=== PATIENT | male | born 1985 | race Caucasian/White ===

== ENCOUNTER → 2017-08-14 15:27 | Outpatient (REF) | payer BC, SELFPAY | LOC: LAB 15:27 | PROVIDERS: Visit Provider Family Medicine | DX: R31.21 Asymptomatic microscopic hematuria (principal) | CPT/HCPCS: 87086 ==

== ENCOUNTER 2017-10-30 15:51 | Emergency (ER) | payer BC, SELFPAY ==
[2017-10-30 15:52] VITALS: BP 142/85; PULSE 101; RESP 18; TEMP 36.8; O2SAT 98; BMI 26.6
--- NOTE | 2017-10-30 15:56 | XR_ITS ---
XR chest 2V Ordering Physician: Ginette Hernandez MD Patient Age: 32 years: Male HISTORY: ITS.REASON: pain in chest TECHNIQUE: 2 view chest COMPARISON : No previous for comparison FINDINGS . The lungs are well expanded. No focal pneumonia. No pneumothorax. No pleural effusion. Chest wall unremarkable. Upper normal markings central markings. Nonspecific reflect a history of smoking could reflect bronchitis or merely a baseline normal for this patient. Central vascularity appears normal to upper normal as well.. The heart is normal in size the rosales and mediastinal structures satisfactory. Chest wall T-spine unremarkable. Spleen appears normal in size. Small Gastric bubble beneath left hemidiaphragm. Patient may have recently eaten as the stomach appears relatively full otherwise IMPRESSION: Nothing definitely acute. No focal pneumonia. No pneumothorax. Central markings upper normal prominence; and likely baseline for this patient
--- NOTE | 2017-10-30 16:03 | HMH.EDCP ---
ED Disposition Clinical Impression: History of asthma, Seasonal allergies, Ulcerative colitis, Reactive airway disease Disposition: Home, Self-Care Condition on Discharge: Fair Additional Instructions: 1- albuterol mdi. 2- daily asa 81 mg 3- outpatient follow up with Dr Sr at 900 AM tomorrow 10/31/17 for a possible stress. 4- diet rich potassium and gotrade. Prescriptions: Albuterol Sulfate [Albuterol HFA Inhaler] 1 puff IH Q4HP PRN #1 inh PRN Reason: Shortness Of Breath Or Wheezing Referrals: Oliver Evans MD [Primary Care Provider] - Dex Sr MD [Staff Physician] - - Critical Care Critical Care Time: No Attestation: On , the high probability of a clinically significant, sudden or life threatening deterioration of the following system(s) required my full and direct attention, intervention and personal management. The time I documented below is in addition to time spent performing reported procedures but includes the following listed in this critical care notation. Medical Decision Making - Luis Inquiry Pt receiving controlled substance: No Luis was queried for this patient: No Vital Signs: 10/30/17 15:52 10/30/17 16:41 Temperature 98.3 F Temperature Source Oral Pulse Rate 81 Pulse Rate [Right Brachial] 101 H Respiratory Rate 18 Blood Pressure [Right Arm] 142/85 Blood Pressure Mean [Right Arm] 104 Blood Pressure Source [Right Arm] Automatic Cuff Blood Pressure Position [Right Arm] Sitting 02 Sat by Pulse Oximetry 98 Oxygen Delivery Method Room Air - Lab Data Lab Results 10/30/17 16:00: WBC 8.0, RBC 5.25, Hgb 16.5, Hct 45.9, MCV 87.4, MCH 31.5 H, MCHC 36.0 H, RDW 13.0, Plt Count 294, MPV 8.0, Neut % (Auto) 53.2, Lymph % (Auto) 34.8, [place] % (Auto) 9.0, Eos % (Auto) 2.0, Baso % (Auto) 0.9, Neut # (Auto) 4.2, Lymph # (Auto) 2.8, [place] # (Auto) 0.7, Eos # (Auto) 0.2, Baso # (Auto) 0.1 10/30/17 16:00: Sodium 142, Potassium 3.3 L, Chloride 103, Carbon Dioxide 28, Anion Gap 14.3, BUN 23 H, Creatinine 1.29, Estimated Creat Clear 89, Estimated GFR 64, Est GFR ( Amer) 78, Glucose 114 H, Calcium 8.5, Troponin I < 0.02, Amylase 46 10/30/17 16:00: D-Dimer < 100 10/30/17 16:00: Lipase 164 10/30/17 16:00: Total Bilirubin 0.4, Direct Bilirubin 0.1, Indirect Bilirubin 0.3, AST 36, ALT 62, Alkaline Phosphatase 60, Total Protein 7.2, Albumin 4.0 10/30/17 16:00: B-Natriuretic Peptide 21 10/30/17 16:10: Troponin I < 0.02 Result diagrams: 10/30/17 16:00 10/30/17 16:00 Orders (Tests/Meds): ED MEDICATIONS Discontinued Medications Generic Name Dose Route Start Last Admin Trade Name Freq PRN Reason Stop Dose Admin Albuterol Sulfate 2.5 mg 10/30/17 16:02 10/30/17 16:07 Albuterol 0.083% 2.5mg/3ml Neb IH 10/30/17 16:03 2.5 mg ONCE ONE Administration Famotidine 20 mg 10/30/17 16:02 10/30/17 16:07 Pepcid 20mg/2ml Vial IV 10/30/17 16:03 20 mg ONCE ONE Administration Methylprednisolone Sodium Succinate 125 mg 10/30/17 16:02 10/30/17 16:07 Solu-Medrol 125mg/2ml Vial IV 10/30/17 16:03 125 mg ONCE ONE Administration ORDERS Category Date Time Status ABG [Arterial Blood Gas] Stat RT 10/30/17 16:00 Ordered - Radiology Data #1 Image(s): Chest Image Reviewed: Yes I reviewed the patient's radiology image, Yes I discussed the image results w/the radiologist Preliminary Findings: Normal/NAD - ECG Data Tracing #1 Normal sinus rhythm without baseline artifact normal P-wave QRS and T waves no acute. ECG initial impression date: 10/30/17 ECG initial impression time: 15:50 Normal Sinus Rhythm: No Medical Decision Narrative: The patient refused arterial blood gases aware of risks and benefits will sign a refusal. He received IV steroids albuterol neb treatment with improvement of his symptoms. He was ruled out for myocardial
--- NOTE | 2017-10-30 16:05 | PC.NURSE ---
pt refused blood gas
--- NOTE | 2017-10-30 16:06 | ED_ITS ---
ED Disposition Clinical Impression: History of asthma, Seasonal allergies, Ulcerative colitis, Reactive airway disease Disposition: Home, Self-Care Condition on Discharge: Fair Additional Instructions: 1- albuterol mdi. 2- daily asa 81 mg 3- outpatient follow up with Dr Sr at 900 AM tomorrow 10/31/17 for a possible stress. 4- diet rich potassium and gotrade. Prescriptions: Albuterol Sulfate [Albuterol HFA Inhaler] 1 puff IH Q4HP PRN #1 inh PRN Reason: Shortness Of Breath Or Wheezing Referrals: Oliver Evans MD [Primary Care Provider] - Dex Sr MD [Staff Physician] - - Critical Care Critical Care Time: No Attestation: On , the high probability of a clinically significant, sudden or life threatening deterioration of the following system(s) required my full and direct attention, intervention and personal management. The time I documented below is in addition to time spent performing reported procedures but includes the following listed in this critical care notation. Medical Decision Making - Luis Inquiry Pt receiving controlled substance: No Luis was queried for this patient: No Vital Signs: 10/30/17 15:52 10/30/17 16:41 Temperature 98.3 F Temperature Source Oral Pulse Rate 81 Pulse Rate [Right Brachial] 101 H Respiratory Rate 18 Blood Pressure [Right Arm] 142/85 Blood Pressure Mean [Right Arm] 104 Blood Pressure Source [Right Arm] Automatic Cuff Blood Pressure Position [Right Arm] Sitting 02 Sat by Pulse Oximetry 98 Oxygen Delivery Method Room Air - Lab Data Lab Results 10/30/17 16:00: WBC 8.0, RBC 5.25, Hgb 16.5, Hct 45.9, MCV 87.4, MCH 31.5 H, MCHC 36.0 H, RDW 13.0, Plt Count 294, MPV 8.0, Neut % (Auto) 53.2, Lymph % (Auto ) 34.8, [place] % (Auto) 9.0, Eos % (Auto) 2.0, Baso % (Auto) 0.9, Neut # (Auto) 4.2, Lymph # (Auto) 2.8, [place] # (Auto) 0.7, Eos # (Auto) 0.2, Baso # (Auto) 0.1 10/30/17 16:00: Sodium 142, Potassium 3.3 L, Chloride 103, Carbon Dioxide 28, Anion Gap 14.3, BUN 23 H, Creatinine 1.29, Estimated Creat Clear 89, Estimated GFR 64, Est GFR ( Amer) 78, Glucose 114 H, Calcium 8.5, Troponin I < 0.02 , Amylase 46 10/30/17 16:00: D-Dimer < 100 10/30/17 16:00: Lipase 164 10/30/17 16:00: Total Bilirubin 0.4, Direct Bilirubin 0.1, Indirect Bilirubin 0.3, AST 36, ALT 62, Alkaline Phosphatase 60, Total Protein 7.2, Albumin 4.0 10/30/17 16:00: B-Natriuretic Peptide 21 10/30/17 16:10: Troponin I < 0.02 Result diagrams: 10/30/17 16:00 10/30/17 16:00 Orders (Tests/Meds): ED MEDICATIONS Discontinued Medications Generic Name Dose Route Start Last Admin Trade Name Freq PRN Reason Stop Dose Admin Albuterol Sulfate 2.5 mg 10/30/17 16:02 10/30/17 16:07 Albuterol 0.083% 2.5mg/3ml Neb 10/30/17 16:03 2.5 mg ONCE ONE Administration Famotidine 20 mg 10/30/17 16:02 10/30/17 16:07 Pepcid 20mg/2ml Vial IV 10/30/17 16:03 20 mg ONCE ONE Administration Methylprednisolone Sodium Succinate 125 mg 10/30/17 16:02 10/30/17 16:07 Solu-Medrol 125mg/2ml Vial IV 10/30/17 16:03 125 mg ONCE ONE Administration ORDERS
[2017-10-30 16:31] LABS: D-Dimer < 100 ng/mL (0-400)
[2017-10-30 16:41] VITALS: PULSE 81; PULSE 84
[2017-10-30 16:44] LABS: Basophils # 0.1 K/mm3 (0-0.2); Basophils % 0.9 % (0.1-2.0); Eosinophils # 0.2 K/mm3 (0.0-0.4); Hematocrit 45.9 % (42.0-52.0); Hemoglobin 16.5 g/dL (14.1-18.0); Lymphocytes # 2.8 K/mm3 (0.7-4.5); Lymphocytes % 34.8 K/mm3 (10-50); Mean Corpuscular Hemoglobin 31.5 pg (27.0-31.2); Mean Corpuscular Volume 87.4 fl (80-94); Monocytes # 0.7 K/mm3 (0.1-1.0); Neutrophils # 4.2 K/mm3 (1.8-7.8); Neutrophils % 53.2 % (37.0-80.0); Platelet Count 294 K/mm3 (142-424); Red Blood Count 5.25 M/mm3 (4.60-6.20)
[2017-10-30 17:02] LABS: Aspartate Amino Transferase 36 U/L (15-37); Bilirubin,Direct 0.1 mg/dL (0.0-0.2); Bilirubin,Indirect 0.3 mg/dL (0.0-0.9); Bilirubin,Total 0.4 mg/dL (0.2-1.0)
[2017-10-30 17:03] LABS: Alanine Aminotransferase 62 U/L (12-78); Alkaline Phosphatase 60 U/L (46-116); Total Protein,Serum 7.2 gm/dL (6.4-8.2)
[2017-10-30 17:04] LABS: Anion Gap 14.3 mEq/L (5-15); Blood Urea Nitrogen 23 mg/dL (7-18); Carbon Dioxide 28 mmol/L (21.0-32.0); Chloride 103 mmol/L (98-107); Creatinine Clearance Estimated 89 mL/min (0-300); Creatinine,Serum 1.29 mg/dL (0.70-1.30); Estimated Glomerular Filt Rate 64 ml/min (>60); GFR (African American) 78 ML/MIN (>60); Lipase 164 u/L (73-393); Potassium 3.3 mmoL/L (3.5-5.1); Sodium 142 mmol/L (136-145); Troponin I < 0.02 ng/ml (0.00-0.06)
[2017-10-30 17:05] LABS: Amylase 46 U/L (25-125); Calcium 8.5 mg/dL (8.5-10.1); Glucose 114 mg/dL (74-106)
[2017-10-30 18:33] LABS: Troponin I < 0.02 ng/ml (0.00-0.06)
[2017-10-30 18:54] VITALS: BP 138/79; PULSE 75; RESP 18; TEMP 37; O2SAT 98
== END 2017-10-30 18:54 | disposition home or self-care (01) ==
PROVIDERS: Emergency Provider Emergency Medicine; PCP Family Medicine
DX: R07.89 Other chest pain (principal); J30.2 Other seasonal allergic rhinitis; K51.90 Ulcerative colitis, unspecified, without complications; J45.909 Unspecified asthma, uncomplicated
CPT/HCPCS: 36415; 71046; 80048; 80076; 82150; 83690; 83880; 84484; 85025; 85378; 93005; 96374; 96375; 99283

== ENCOUNTER → 2020-05-19 13:14 | Outpatient (CLI) | payer BC, SELFPAY ==
[2020-05-20 09:12] LABS: Covid-19 Nasal PCR Sendout P&C NEGATIVE
== END ==
PROVIDERS: PCP Family Medicine; Visit Provider Family Medicine
DX: Z11.52 Encounter for screening for COVID-19 (principal)
CPT/HCPCS: U0004

== ENCOUNTER → 2020-09-10 11:49 | Outpatient (CLI) | payer BC, SELFPAY ==
[2020-09-10 11:53] LABS: Microscopic, Urine URINE MICROSCOPIC (MICROSCOPIC)
[2020-09-10 12:50] LABS: Appearance,Urine CLEAR (Clear); Bilirubin,Urine Negative (Negative); Blood, Urine TRACE-I (Negative); Color,Urine YELLOW (Yellow); Glucose,Urine (UA) Negative (Negative); Ketones,Urine Negative (Negative); Leukocyte Esterase,Urine Negative (Negative); Nitrate,Urine Negative (Negative); Protein,Urine Negative (Negative); Specific Gravity, Urine <= 1.005 (1.005-1.030); Urobilinogen,Urine 0.2 EU/dl (0.2)
[2020-09-10 12:54] LABS: Creatinine,Urine Random 17 mg/dL (Not Estab.)
[2020-09-10 13:01] LABS: RBC,Urine Occasional #/hpf (0-3)
[2020-09-10 13:02] LABS: Albumin Level 5.2 g/dl (3.5-5.0); Anion Gap 11.3 mEq/L (5-15); Blood Urea Nitrogen 19 mg/dl (9-20); Carbon Dioxide 32 mmol/L (22.0-30.0); Chloride 99 mmol/L (98-107); Estimated Glomerular Filt Rate 95 ml/min (>60); GFR (African American) 116 ML/MIN (>60); Glucose 116 mg/dl (74-100); Phosphorous 4.1 mg/dl (2.5-4.5); Potassium 4.3 mmoL/L (3.5-5.1); Sodium 138 mmol/L (136-145)
[2020-09-10 13:07] LABS: C-Reactive Protein 0.7 mg/L (0-4)
== END ==
PROVIDERS: Visit Provider Internal Medicine Nephrology
DX: R31.9 Hematuria, unspecified (principal); R80.9 Proteinuria, unspecified; K51.90 Ulcerative colitis, unspecified, without complications
CPT/HCPCS: 36415; 80069; 81001; 82570; 84155; 86140

== ENCOUNTER → 2020-12-14 10:50 | Outpatient (CLI) | payer BC, SELFPAY | PROVIDERS: PCP Family Medicine; Visit Provider Physician Assistant | DX: Z20.822 Contact with and (suspected) exposure to COVID-19 (principal) | CPT/HCPCS: U0003 ==

== ENCOUNTER 2025-01-25 18:17 | Emergency (ER) | payer BC, OTHER, SELFPAY ==
--- NOTE | 2025-01-25 18:19 | XR_ITS ---
PROCEDURE INFORMATION: Exam: XR Chest Exam date and time: 01/25/2025 6:29 PM Age: 39 years old Clinical indication: Shortness of breath TECHNIQUE: Imaging protocol: Radiologic exam of the chest. Views: 1 view. COMPARISON: No relevant prior studies available. FINDINGS: Limitations: Suboptimal positioning. Tubes, catheters and devices: Leads overlying chest. Lungs: No definite consolidation. Pleural spaces: No significant pleural effusion. No pneumothorax. Heart/Mediastinum: No cardiomegaly. Bones/joints: No displaced fracture. Soft tissues: Unremarkable. IMPRESSION: No definite acute cardiopulmonary disease.
--- NOTE | 2025-01-25 18:19 | ECG_ITS ---
APPROVED REPORT Exam: Resting ECG HR:77 bpm ECG Measurements Heart Rate 77 AXES NJ 146 P 46 QRSd 94 QRS 63 QT 394 T 47 QTc 425 Conclusion SINUS RHYTHM NORMAL ECG UNCONFIRMED REPORT Normal sinus rhythm. No ST elevation or depression. QTc normal at 425 Electronically signed by : JUANITA SMITH, 01/25/2025 22:26:23
--- NOTE | 2025-01-25 18:20 | ED_ITS ---
<Statement entered by Taj Gardner MD - 01/25/25 20:22> I was consulted by the NOHEMI, and we discussed the complexity of the problems being addressed. I approve the treatment and management plan for this patient's care in the emergency department, thus performing a substantive portion of the medical decision making. Taj Gardner MD Discharge Plan Prescriptions Prescriptions: No Action albuterol sulfate 18 GM HFA aerosol inhaler 1 puff IH Q4HP PRN (Reason: Shortness Of Breath Or Wheezing) Qty: 1 0RF Clinical Impressions Clinical Impression: Atypical chest pain Print Language Print Language: Yakut Discharge ED Provider: Taj Gardner HPI General Chief Complaint: Chest Pain Stated Complaint: Chest Pain Time Seen by Provider: 01/25/25 18:18 History of Present Illness HPI narrative: Oliver Viramontes is a 39-year-old male without significant past medical history who presents emergency room today with complaints of chest discomfort and shortness of breath. Patient reports he has had symptoms like this in the past. Symptoms all initially started on , patient reports he became acutely more pronounced and noticeable today. Reports that he was driving to [place] earlier today and began having some shortness of breath, states he felt off . Reports some chest discomfort on the left side of his chest, described as some light pressure. Nonradiating. No ripping or tearing sensation noted. Denies any nausea, vomiting, diarrhea. No diaphoresis noted. Reports he had some tingling in all 4 extremities that started as well. Has had this sensation intermittently today as well. No family history of sudden cardiac , did have a grandfather with a reported heart attack. Tells me that he was diagnosed with a panic attack/anxiety during his last ER visit for the same symptoms. Does not take any medications daily. Denies any tobacco use, alcohol use, illicit drug use. Related Data Previous Rx's ?Medication ?Instructions ?Recorded albuterol sulfate 90 mcg/actuation 1 puff IH Q4HP PRN Shortness Of 10/30/17 aerosol inhaler Breath Or Wheezing #1 inh Allergies Allergy/AdvReac Type Severity Reaction Status Date / Time No Known Allergies Allergy Verified 08/31/17 12:06 [facility] Disclaimer: The information contained in this section may have been updated after the patient was seen, as this information can be updated by other users. Social History Smoking Status: Never smoker alcohol intake: current alcohol intake frequency: holidays/special occasions only current occupational status: employed Travel in the last 8 weeks?: None Other Medical History Have you received the Flu Vaccine for this season: Yes Have you received the Pneumonia Vaccine: No ROS Obtained: Yes All systems reviewed & no additional complaints except as documented Physical Exam General General appearance: alert and in no apparent distress Head Head exam: atraumatic and normocephalic Eye Eye exam: Present PERRL and EOMI Neck Neck exam: Present trachea midline Chest Chest inspection: Present symmetric chest wall rise Respiratory Respiratory exam: Present normal lung sounds bilaterally Cardiovascular Cardiovascular exam: Present regular rate and normal rhythm Abdominal Exam Abdominal exam: Present soft and normal bowel sounds; Absent tenderness Extremities Exam Extremities exam: Present normal inspection and full ROM Neurological Exam Neurological exam: Present alert and oriented X3 Skin Skin exam: Present warm, dry and intact HEART Score HEART Score HEART Score assessment performed?: Yes HEART Score: 1 Critical Care Critical Care Time Critical Care Time: No Medical Decision Making Luis Inquiry Pt receiving controlled substance: No Vital Signs Vital Signs: 01/25/25 18:21 01/25/25 18:27 Temperature 98.3 F Temperature Source Oral Pulse Rate 60 Pulse Rate [Left Radial] 74 Respiratory Rate 20 Blood Pressure [Right Arm] 136/97 H Blood Pressure Mean [Right Arm] 110 02 Sat by Pulse Oximetry 98 Oxygen Delivery Method Room Air Lab Data Labs: Lab Results 01/25/25 18:17: WBC 6.8, RBC 5.10, Hgb 16.3, Hct 44.2, MCV 86.7, MCH 32.0 H, M CHC 36.9 H, RDW 11.8, Plt Count 262, MPV 10.3, Neut % (Auto) 61.6, Lymph % (Auto) 26.1, [place] % (Auto) 9.8 H, Eos % (Auto) 1.2, Baso % (Auto) 1.0, Neut # (Auto) 4.2, Lymph # (Auto) 1.8, [place] # (Auto) 0.7, Eos # (Auto) 0.1, Baso # (Auto) 0.1, Sodium 141, Potassium 3.7, Chloride 101, Carbon Dioxide 28, Anion Gap 15.7 H, BUN 21 H, Creatinine 1.20, Estimated Creat Clear 82, Estimated GFR 67, Est GFR ( Amer) 81, Glucose 90, Calcium 9.3, Total Bilirubin 0.8, AST 36, ALT 27, Alkaline Phosphatase 51, Troponin I < 0.01, Total Protein 8.1, Albumin 5.0, Globulin 3.1, Albumin/Globulin Ratio 1.6 01/25/25 18:17 01/25/25 18:17 Response Orders (Tests/Meds): ORDERS Category Date Time Status CXR --portable [XR chest portable] Stat Exams 01/25/25 18:19 Taken CBC w/Auto Diff [Complete Blood Count Auto Diff] Stat Lab 01/25/25 18:17 Completed CMP [Comprehensive Metabolic Panel] Stat Lab 01/25/25 18:17 Completed Trop I [Troponin I] Stat Lab 01/25/25 18:17 Completed Troponin I Q3H Lab 01/25/25 21:30 Ordered Troponin I Q3H Lab 01/26/25 00:30 Ordered ECG Request Stat Y 01/25/25 18:19 Ordered MDM Narrative Medical Decision Narrative: In summary patient is an 39-year-old male who presents emergency department for evaluation of chest discomfort and shortness of breath. Symptoms all started on , but seem to acutely worsen today. Denies any diaphoresis, nausea, vomiting. Does report some intermittent tingling of his arms and legs. Has been evaluated for the symptoms in the ER in the past, was diagnosed with anxiety/panic attacks. He is unsure if he has had a stress test or an echo in the past. Denying any tearing or ripping sensation in his chest, no chest pain at this time per se. Patient does describe that he feels off and states that it feels like it is affecting more on the left side of his chest. Patient is hemodynamically stable, normotensive blood pressures, heart rate regular, NSR on the bus monitor upon arrival, afebrile. Unremarkable nonfocal physical exam, patient appears healthy, stated age, in no acute distress.. Differential diagnosis includes chest pain, pulmonary embolism, pneumonia, pneumothorax. Initial workup will be conducted with hematologic labs, chest x-ray, EKG. patient does have a PERC score of 0. Heart score is 1. Did consider ordering a CTA of the chest but patient has a PERC score of 0. Initial interventions include reassurance, patient declining any pain medicine at this time. No chest pain reported per se, just states he feels off . Initial workup reviewed by me showed a negative troponin, no leukocytosis, normal electrolytes. EKG without ST elevation. Informal read of the Chest x-ray showed no acute cardiopulmonary process. Upon repeat evaluation patient states he feels better and was ready to be discharged home. Given this patient is medically stable and appropriate for discharge at this time. Strict return precautions were given to the patient and he verbalized understanding. Patient to follow-up with his primary care physician as needed.
[2025-01-25 18:21] VITALS: BP 136/97; PULSE 74; RESP 20; TEMP 36.8; O2SAT 98; BMI 24.4
[2025-01-25 18:27] VITALS: PULSE 60
--- OUTSIDE RECORDS SUMMARY | 2025-01-25 18:28 | XMS_ITS | Encounter Summary ---
Author Organization [employer] ([place], [place], [place], [place]) Address [address] [place] [address] Care Team Providers Care Molecular Biology Professor Name Role Phone Edwina Rodriguez MD Primary Care Provider [phone] Encounter Details Date Type Department Care Team (Late st Contact Info) Description 08/22/2019 Transcribed Document [facility] [place] Family Medicine [facility] [place] [address] ProviderSalty MD [address] [place] [address] [phone] Social History Tobacco Use Types Packs/Day Years Used Date Smoking Tobacco: Never Assessed Sex and Gender Information Value Date Recorded Sex Assigned at Not on file Legal Sex Male 4:38 PM CDT Gender Identity Not on file Sexual Orientation Not on file documented as of this encounter Miscellaneous Notes * [employer] Conversion Note - Salty ProviderMD - 08/22/2019 12:57 PM CDT Event Note Entered On: 08/22/2019 12:57 EDT Performed On: 08/22/2019 12:57 EDT by WILL WILLIAM RN Event Note Event Date/Time : 08/22/2019 12:57 EDT Event Location : Assigned room Event Details : Other: to 3B via Wheelchair WILL WILLIAM RN - 08/22/2019 12:57 EDT Electronically signed by [facility] Conversion Retail Stock Clerk [employer] at 08/25/2022 3:31 PM CDT documented in this encounter Plan of Treatment Not on file documented as of this encounter Visit Diagnoses Not on filedocumented in this encounter Care Teams Molecular Biology Professor Relationship Specialty Start Date End Date Edwina Rodriguez MD PCP - General Internal Medicine 02/01/22 documented as of this encounter
--- OUTSIDE RECORDS SUMMARY | 2025-01-25 18:28 | XMS_ITS | Patient Health Record ---
[facility] Address [address] [place] [id number] Care Team Providers Care Receiving Operator Name Role Phone Oliver Evans Primary Care Provider [phone] Allergies No Known Allergies Reason For Referral No Information Immunizations Vaccine Route Administration Date Status Comme nts Fluzone PF Quad (6-35 months) Unknown 08/23/2019 Admini stered Fluzone PF Quad (6-35 months) Unknown 03/18/2020 Admini stered Problems Problem Type SNOMED Code ICD Code Onset Dates Problem Status W/U Status Risk Notes Problem Allergic rhinitis (39649932) Allergic rhinitis (J30.9) Active confirmed Problem Fibromyalgia (723023222) Fibromyalgia affecting multiple sites (M79.7) Active confirmed Plan Of Treatment No Information Insurance Providers Payer Name Payer Address Payer Phone Subscriber Number Group Number Insured Name Patient Relationship to Insured Coverage Start Date Coverage End Date [facility] [id number] [place] [address] [id number] WILLAM ZENDEJAS Self - patient is the insured Medications Administered Medication Instructions Date of Administration Dosage Notes allergy 03/25/2015 0.10 mL allergy 03/25/2015 0.10 mL allergy 2015 0.15 mL allergy 2015 0.15 mL allergy 03/30/2015 0.20 mL allergy 03/30/2015 0.20 mL allergy 04/01/2015 .25 mL allergy 04/01/2015 .25 mL allergy 04/13/2015 0.30 mL allergy 04/13/2015 0.30 mL allergy 04/15/2015 0.35 mL allergy 04/15/2015 0.35 mL allergy 04/15/2015 0.35 mL allergy 04/17/2015 0.40 mL allergy 04/17/2015 0.40 mL allergy 04/20/2015 0.45 mL allergy 04/20/2015 0.45 mL allergy 04/20/2015 0.45 mL allergy 04/24/2015 0.50 mL allergy 04/24/2015 0.50 mL allergy 04/27/2015 0.05 mL allergy 04/27/2015 0.05 mL allergy 04/29/2015 0.10 mL allergy 04/29/2015 0.10 mL allergy 05/04/2015 0.15 mL allergy 05/04/2015 0.15 mg allergy 05/06/2015 0.20 mL allergy 05/06/2015 0.20 mL allergy 05/11/2015 0.25 mL allergy 05/11/2015 0.25 mL allergy 05/13/2015 0.30 mL allergy 05/13/2015 0.30 mL allergy 05/15/2015 0.35 mL allergy 05/15/2015 0.35 mL allergy 05/18/2015 0.40 mL allergy 05/18/2015 0.40 mL allergy 05/20/2015 0.45 mL allergy 05/20/2015 0.45 mL allergy 05/22/2015 .50 mL allergy 05/22/2015 .50 mL allergy 05/25/2015 0.05 mL allergy 05/25/2015 0.05 mL allergy 05/27/2015 .10 mL allergy 05/27/2015 .10 mL allergy 06/01/2015 .15 mL allergy 06/01/2015 .15 mL allergy 06/03/2015 .20 mL allergy 06/03/2015 .20 mL allergy 06/05/2015 0.25 mL allergy 06/05/2015 0.25 mL allergy 06/08/2015 .30 mL allergy 06/08/2015 .30 mL allergy 06/10/2015 0.35 mL allergy 06/10/2015 0.35 mL allergy 06/12/2015 0.40 mL allergy 06/12/2015 0.40 mL allergy 06/15/2015 0.45 mL allergy 06/15/2015 0.45 mL allergy 06/17/2015 0.50 mL allergy 06/17/2015 0.50 mL allergy 06/19/2015 0.05 mL allergy 06/19/2015 0.05 mL allergy 06/22/2015 0.10 mL allergy 06/22/2015 0.10 mL allergy 06/24/2015 0.15 mL allergy 06/24/2015 0.15 mL allergy 06/26/2015 .20 mL allergy 06/26/2015 .20 mL allergy 06/29/2015 0.25 mL allergy 06/29/2015 0.25 mL allergy 07/01/2015 .30 mL allergy 07/01/2015 .30 mL allergy 07/03/2015 0.35 mL allergy 07/03/2015 0.35 mL allergy 07/06/2015 0.40 mL allergy 07/06/2015 0.40 mL allergy 07/08/2015 0.45 mL allergy 07/08/2015 0.45 mL allergy 07/10/2015 0.50 mL allergy 07/10/2015 0.50 mL allergy 07/13/2015 .05 mL allergy 07/13/2015 .05 mL allergy 07/15/2015 0.10 mL allergy 07/15/2015 0.10 mL allergy 07/17/2015 0.10 mL allergy 07/17/2015 0.10 mL allergy 07/20/2015 0.15 mL allergy 07/20/2015 0.15 mL allergy 07/24/2015 .25 mL allergy 07/24/2015 .25 mL allergy 07/27/2015 0.25 mL allergy 07/27/2015 0.25 mL allergy 07/29/2015 0.30 mL allergy 07/29/2015 0.30 mL allergy 07/31/2015 0.35 mL allergy 07/31/2015 0.35 mL allergy 08/03/2015 0.40 mL allergy 08/03/2015 0.40 mL allergy 08/07/2015 0.40 mL allergy 08/07/2015 0.40 mL allergy 08/10/2015 .40 mL allergy 08/10/2015 .40 mL allergy 08/12/2015 0.40 mL allergy 08/12/2015 0.40 mL allergy 08/17/2015 0.1 mL allergy 08/17/2015 0.10 mL allergy 08/24/2015 0.15 mL allergy 08/31/2015 allergy 08/31/2015 allergy 09/07/2015 0.25 mL allergy 09/07/2015 0.25 mL allergy 09/14/2015 0.30 mL allergy 09/14/2015 0.30 mL allergy 09/21/2015 0.35 mL allergy 09/21/2015 0.35 mL allergy 09/30/2015 0.40 mL allergy 09/30/2015 0.40 mL allergy 10/07/2015 0.45 mL Right arm, epi rter size reaction (2cm) keep at 0.40 allergy 10/07/2015 0.45 mL allergy 10/14/2015 0.40 mL allergy 10/14/2015 0.50 mL allergy 01/24/2020 0.10 mL allergy 01/24/2020 0.10 mL allergy 01/29/2020 0.15 mg allergy 01/29/2020 0.15 mg allergy 01/31/2020 0.20 mg allergy 01/31/2020 0.20 mg allergy 02/05/2020 0.25 mL allergy 02/05/2020 0.25 mL allergy 02/07/2020 0.30 mL allergy 02/07/2020 0.30 mL allergy 02/14/2020 0.35 mL allergy 02/14/2020 allergy 02/19/2020 0.04 mL allergy 02/19/2020 0.40 mL allergy 02/21/2020 0.45 mL allergy 02/21/2020 0.45 mL allergy 02/24/2020 allergy 02/24/2020 allergy 02/27/2020 0.05 mL allergy 02/27/2020 0.05 mL allergy 03/11/2020 0.10 mL allergy 03/11/2020 0.10 mL allergy 03/13/2020 0.15 mL allergy 03/13/2020 0.15 mL allergy 03/17/2020 0.20 mL allergy 03/17/2020 0.20 mL allergy 03/20/2020 0.25 mL allergy 03/20/2020 0.25 mL allergy 03/24/2020 0.30 mL allergy 03/24/2020 0.30 mL allergy 2020 0.35 allergy 2020 0.35 mL allergy 03/31/2020 0.40 mL allergy 03/31/2020 0.40 mL allergy 04/06/2020 0.45 mL allergy 04/06/2020 0.45 mL allergy 04/10/2020 0.5 mL allergy 04/10/2020 0.5 mL allergy 04/14/2020 0.05 mL allergy 04/14/2020 0.05 mL allergy 04/17/2020 1.0 mL allergy 04/17/2020 1.0 mL allergy 04/22/2020 0.15 mL allergy 04/22/2020 0.15 mL allergy 04/28/2020 0.20 mL allergy 04/28/2020 0.20 mL allergy 05/04/2020 0.30 mL allergy 05/04/2020 0.30 mL allergy 05/12/2020 0.40 mL allergy 05/12/2020 0.40 mL allergy 05/19/2020 0.50 mL allergy 05/19/2020 0.50 mL allergy 05/25/2020 0.05 mL allergy 05/25/2020 0.05 mL allergy 05/28/2020 0.10 mL allergy 05/28/2020 0.10 mL allergy 06/16/2020 0.15 mL allergy 06/16/2020 0.15 mL allergy 06/19/2020 0.2 mL allergy 06/19/2020 0.20 mL allergy 06/22/2020 0.25 mg allergy 06/22/2020 0.25 mg allergy 06/25/2020 0.30 mL allergy 06/25/2020 0.30 mL allergy 06/30/2020 0.35 mL allergy 06/30/2020 0.35 mL allergy 07/17/2020 0.40 mL allergy 07/17/2020 0.40 mL allergy 07/28/2020 0.45 mL allergy 07/28/2020 0.45 mL allergy 08/11/2020 0.5 mL allergy 08/11/2020 0.5 mL allergy 08/26/2020 allergy 08/26/2020 allergy 09/14/2020 0.50 mL allergy 09/14/2020 0.50 mL allergy 09/30/2020 0.50 mL allergy 09/30/2020 0.50 mL allergy 10/15/2020 0.50 mL allergy 10/15/2020 0.50 mL allergy 10/29/2020 0.5 mL allergy 10/29/2020 0.5 mL allergy 11/12/2020 0.40 mL allergy 11/12/2020 0.40 mL allergy 12/10/2020 0.5 mL allergy 12/10/2020 0.5 mL allergy 12/24/2020 0.5 mL allergy 12/24/2020 0.5 mL allergy 01/08/2021 0.50 mL allergy 01/08/2021 0.50 mL allergy 01/26/2021 0.50 mL allergy 01/26/2021 0.50 mL allergy 02/23/2021 0.50 mL allergy 02/23/2021 0.50 mL allergy 03/25/2021 0.10 mL allergy 03/25/2021 0.10 mL allergy 05/06/2021 0.2 mL allergy 05/06/2021 0.2 mL Medical (General) History Medical History History ICD Code ulcerative Colitis IgA Nephropathy fibromyalgia, Dx 2019 at [facility] Covid Positive - 05/30/2020 Surgical History Surgery Date(Month/Year) Kidney Biopsy - [facility] August 2019 Hospitalization History Reason Date(Month/Year) [facility] - Out patient testing September 24
--- OUTSIDE RECORDS SUMMARY | 2025-01-25 18:28 | XMS_ITS | Clinical Summary ---
Author Organization [employer] [facility] ([place], [place], [place], [place]) Address [address] [place] [address] Care Team Providers Care Calibration Engineer Name Role Phone Edwina Rodriguez MD Primary Care Provider [phone] Allergies No known active allergies Medications No known medications Active Problems Problem Noted Date Diagnosed Date Seasonal allergic rhinitis 08/18/2022 Arthralgia 03/23/2021 Ulcerative colitis 03/23/2021 Muscle pain 10/21/2020 IgA nephropathy 10/21/2020 Elevated liver enzymes 03/19/2020 Fatigue 10/09/2019 Positive antinuclear antibody 10/09/2019 Proteinuria 08/29/2019 Hematuria 06/19/2019 Immunizations Immunization Administration Dates Next Due Influenza (Flublok)_0.5ml Qi v_im_egg & Antibiotic Free Pf (FHV086) 03/18/2020 Influenza Four-qiv Pf 08/23/2019 Social History Tobacco Use Types Packs/Day Years Used Date Smoking Tobacco: Never Smokeless Tobacco: Never Tobacco Cessation:Counseling Given: Not Answered Alcohol Use Standard Drinks/Week Comments Yes 0 (1 standard drink = 0.6 oz pur e alcohol) Family and Community Support Answer Navjot e Recorded Help with Day to Day Activities Not on file 05/26/2023 Feeling Lonely or Isolated Not on file 05/26 Educational Attainment Answer Date Jose Alejandro rded Speak language other than Russian at home Not on file 05/26/2023 Want help with school or training Not on file 05/26/2023 Substance Use Answer Date Recorded Used prescription meds for non-medical reasons N ot on file 05/26/2023 Used illegal drugs past 12 months Not on file 05/26/2023 Sex and Gender Information Value Date Recorded Sex Assigned at Not on file Legal Sex Male 4:38 PM CDT Gender Identity Not on file Sexual Orientation Not on file Last Filed Vital Signs Vital Sign Reading Time Taken Comments Blood Pressure 127/67 08/18/2022 11:36 AM EDT Pulse 63 08/18/2022 11:36 AM EDT Temperature 36.8 C (98.3 F) 08/18/2022 11:36 AM EDT Respiratory Rate 16 03/02/2022 12:23 PM EDT Oxygen Saturation 100% 03/02/2022 12:23 PM EDT Inhaled Oxygen Concentration - - Weight 68.1 kg (150 lb 3.2 oz) 08/18/2022 11:36 AM EDT Height 170.2 cm (5' 7 ) 08/18/2022 11:36 AM EDT Body Mass Index 23.52 08/18/2022 11:36 AM EDT Plan of Treatment Health Maintenance Due Date Last Done Comments CT Colonography 1984 FOBT/FIT 1984 Fit-DNA (Cologuard) 1985 Sigmoidoscopy 1985 Depression Screening (12+) 1996 HIV Screening 1999 Hepatitis C Screening 2002 DTAP/TDAP/TD VACCINES (1 - Tdap) 2003 Lipid Panel 2019 Tobacco Cessation Counseling and Screening (12+) 08/19/2023 08/18/2022 Colonoscopy 03/02/2024 03/02/2022, 03/02/2022 Colorectal Cancer Screening 03/02/2024 COVID-19 VACCINE (1 - 2023-2 5 season) 2025 Influenza Vaccine (#1) 2025 0, 03/21/2017 Pneumococcal Vaccine: 0-49 Years Aged Out No longer eligible b ased on patient's age to complete this topic Insurance [facility] [employer] Care Teams Calibration Engineer Relationship Specialty Start Date End Date Edwina Rodriguez MD PCP - General Internal Medicine 02/01/22
--- OUTSIDE RECORDS SUMMARY | 2025-01-25 18:28 | XMS_ITS | Encounter Summary ---
Author Organization [employer] ([place], [place], [place], [place]) Address [address] [place] [address] Care Team Providers Care Machining Associate Name Role Phone Edwina Rodriguez MD Primary Care Provider [phone] Encounter Details Date Type Department Care Team (Late st Contact Info) Description 08/23/2019 Transcribed Document [facility] [place] [facility] [address] ProviderSalty MD [address] [place] [id number] Social History Tobacco Use Types Packs/Day Years Used Date Smoking Tobacco: Never Assessed Sex and Gender Information Value Date Recorded Sex Assigned at Not on file Legal Sex Male 4:38 PM CDT Gender Identity Not on file Sexual Orientation Not on file documented as of this encounter Miscellaneous Notes * Cerner Conversion Note - Salty Simental MD - 08/23/2019 10:33 AM CDT Final Discharge Planning Entered On: 08/23/2019 10:39 EDT Performed On: 08/23/2019 10:33 EDT by ELLIOT CISNEROS RN-City Tax Auditor Final Discharge Planning Discharge Arrangements : Patient Post-Acute Information Patient Name: WILLAM ZENDEJAS Gender: Male : [birth year] Age: 34 Years No Post-Acute Placement(s) Listed No Post-Acute Service(s) Listed No Cur[place]pan Referral(s) Listed Transportation Needs : Family/Friend Is Patient High/Moderate Readmission Risk? : No Patient/Family Notified of Plan : Yes Support Person/Pt Rep Notified of Plan : Yes Is Patient Ready for Discharge? : Yes Physician Notified Patient is Ready for Discharge? : Yes Discharge To Care Management : Home/Residential/Fci or Self Care -01 ELLIOT CISNEROS RN-City Tax Auditor - 08/23/2019 10:33 EDT Final Narrative Note Final Narrative Note : Discharged home, s/p renal biopsy, agreeable. Pt discharged and left floor prior to CM visit. No needs verbalized at discharge. ELLIOT CISNEROS RN-City Tax Auditor - 08/23/2019 10:33 EDT documented in this encounter Plan of Treatment Not on file documented as of this encounter Visit Diagnoses Not on filedocumented in this encounter Care Teams Machining Associate Relationship Specialty Start Date End Date Edwina Rodriguez MD PCP - General Internal Medicine 02/01/22 documented as of this encounter
--- OUTSIDE RECORDS SUMMARY | 2025-01-25 18:28 | XMS_ITS | Referral Summary ---
Author Organization [employer] ([place], [place], [place], [place]) Address [address] [place] [address] Care Team Providers Care Retail Greeting Card Merchandiser Name Role Phone Edwina Rodriguez MD Primary Care Provider [phone] Allergies No known active allergies Medications No known medications Active Problems Problem Noted Date Diagnosed Date Seasonal allergic rhinitis 08/18/2022 Arthralgia 03/23/2021 Ulcerative colitis 03/23/2021 Muscle pain 10/21/2020 IgA nephropathy 10/21/2020 Elevated liver enzymes 03/19/2020 Fatigue 10/09/2019 Positive antinuclear antibody 10/09/2019 Proteinuria 08/29/2019 Hematuria 06/19/2019 Immunizations Immunization Administration Dates Next Due Influenza (Flublok)_0.5ml Qi v_im_egg & Antibiotic Free Pf (RQD961) 03/18/2020 Influenza Four-qiv Pf 08/23/2019 Social History [...] Jose Alejandro rded Speak language other than [place] Island[place] at home Not on file 05/26/2023 Want [...] 08/18/2022 11:36 AM EDT Plan of Treatment Not on file Insurance [facility] [employer] Care Teams Retail Greeting Card Merchandiser Relationship Specialty Start Date End Date Edwina Rodriguez MD PCP - General Internal Medicine 02/01/22
--- OUTSIDE RECORDS SUMMARY | 2025-01-25 18:28 | XMS_ITS | Encounter Summary ---
Author Organization [employer] ([place], [place], [place], [place]) Address [address] [place] [address] Care Team Providers Care Casino Floor Person Name Role Phone Edwina Rodriguez MD Primary Care Provider [phone] Encounter Details Date Type Department Care Team (Late st Contact Info) Description 08/22/2019 Transcribed Document [facility] [place] Family [place] [facility] [place] [address] ProviderSalty MD [address] [place] [id number] Social History Tobacco Use Types Packs/Day Years Used Date Smoking Tobacco: Never Assessed Sex and Gender Information Value Date Recorded Sex Assigned at Not on file Legal Sex Male 4:38 PM CDT Gender Identity Not on file Sexual Orientation Not on file documented as of this encounter Miscellaneous Notes * Cerner Conversion Note - Salty Simental MD - 08/22/2019 2:02 PM CDT Consult Phone Call Documentation Entered On: 08/23/2019 6:26 EDT Performed On: 08/22/2019 14:02 EDT by MAURY QUISPE Phone Call for Consults Consult Phone Call/Page Attempt : Other: done MAURY QUISPE - 08/23/2019 6:26 EDT documented in this encounter Plan of Treatment Not on file documented as of this encounter Visit Diagnoses Not on filedocumented in this encounter Care Teams Casino Floor Person Relationship Specialty Start Date End Date Edwina Rodriguez MD PCP - General Internal Medicine 02/01/22 documented as of this encounter
--- OUTSIDE RECORDS SUMMARY | 2025-01-25 18:28 | XMS_ITS | Encounter Summary ---
Author Organization [employer] ([place], [place], [place], [place]) Address [address] [place] [address] Care Team Providers Care Clay Mixer Name Role Phone Edwina Rodriguez MD Primary Care Provider [phone] Encounter Details Date Type Department Care Team (Late st Contact Info) Description 08/23/2019 Transcribed Document [facility] [place] [facility] [place] [address] ProviderSalty MD [address] [place], [place] [id number] Social History Tobacco Use Types Packs/Day Years Used Date Smoking Tobacco: Never Assessed Sex and Gender Information Value Date Recorded Sex Assigned at Not on file Legal Sex Male 4:38 PM CDT Gender Identity Not on file Sexual Orientation Not on file documented as of this encounter Miscellaneous Notes * Cerner Conversion Note - Salty ProviderMD - 08/23/2019 2:00 AM CDT Barrel Maker Details Entered On: 08/23/2019 4:01 EDT Performed On: 08/23/2019 2:00 EDT by Lillie Gr RN Order Details Isolation Precautions Order Detail : Standard Precautions Order Detail : N/A IV Order Detail : 1 Oxygen Order Detail : 1 Nurse Collect Order Detail : 0 Lift/Transfer : Independent Central Line Order Detail : No Room Service : Appropriate Arterial Line : No Lillie Gr RN - 08/23/2019 4:01 EDT Electronically signed by Eboni Torres Conversion Bioinformatics Software Engineer Cerner at 08/25/2022 3:31 PM CDT documented in this encounter Plan of Treatment Not on file documented as of this encounter Visit Diagnoses Not on filedocumented in this encounter Care Teams Clay Mixer Relationship Specialty Start Date End Date Edwina Rodriguez MD PCP - General Internal Medicine 02/01/22 documented as of this encounter
--- OUTSIDE RECORDS SUMMARY | 2025-01-25 18:28 | XMS_ITS | Encounter Summary ---
Author Organization [employer] ([place], [place], [place], [place]) Address [address] [place] [address] Care Team Providers Care Math Specialist Name Role Phone Edwina Rodriguez MD Primary Care Provider [phone] Encounter Details Date Type Department Care Team (Late st Contact Info) Description 08/22/2019 Transcribed Document [facility] [place] [address] ProviderSalty MD [address] [place] [address] Social History Tobacco Use Types Packs/Day Years Used Date Smoking Tobacco: Never Assessed Sex and Gender Information Value Date Recorded Sex Assigned at Not on file Legal Sex Male 4:38 PM CDT Gender Identity Not on file Sexual Orientation Not on file documented as of this encounter Miscellaneous Notes * Cerner Conversion Note - Salty Simental MD - 08/22/2019 8:56 AM CDT Patient: WILLAM ZENDEJAS [facility]: [id number] Age: 34 years Sex: Male : 1985 Associated Diagnoses: None Author: GORDON ESCOTO PA-C PRE PROCEDURE NOTE I have evaluated the patient prior to the procedure. ASA score: 2 Mallampati score: 2 ASA SCORE ASA 1: Healthy patients ASA 2 : Mild to moderate systemic disease caused by the surgical condition or by other pathological processes, and medically well controlled. ASA 3: Severe disease process which limits activity but is not incapacitating ASA 4: Severe incapacitating disease process that is a constant threat to life ASA 5: Moribund patient not expected to survive 24 hours with or without an operation ASA 6: Declared brain- patient whose organs are being removed for donor purposes Mallampati Score Class I: Soft palate, uvula, fauces, pillars visible. Class II: Soft palate, major part of uvula, fauces visible Class III: Soft palate, base of uvula visible Class IV: Only hard palate visible Electronically signed by [facility], [facility] Conversion Commissioner Of Internal Revenue Cerner at 08/25/2022 3:27 PM CDT documented in this encounter Plan of Treatment Not on file documented as of this encounter Visit Diagnoses Not on filedocumented in this encounter Care Teams Math Specialist Relationship Specialty Start Date End Date Edwina Rodriguez MD PCP - General Internal Medicine 02/01/22 documented as of this encounter
[2025-01-25 18:36] LABS: Hematocrit 44.2 % (42.0-52.0); Hemoglobin 16.3 g/dL (14.1-18.0); Immature Granulocytes % 0.3 %; Mean Corpuscular HGB Conc 36.9 g/dL (31.8-35.4); Mean Corpuscular Hemoglobin 32.0 pg (27.0-31.2); Mean Corpuscular Volume 86.7 fl (80-94); Nucleated Red Blood Cells % 0 %; Platelet Count 262 K/mm3 (142-424); Red Blood Count 5.10 M/mm3 (4.60-6.20); Red Cell Distribution Width-SD 37.9 fL; White Blood Count 6.8 K/mm3 (4.8-10.8)
[2025-01-25 18:38] LABS: Albumin Level 5.0 g/dl (3.5-5.0); Chloride 101 mmol/L (98-107); Sodium 141 mmol/L (136-145)
[2025-01-25 18:39] LABS: Potassium 3.7 mmoL/L (3.5-5.1)
[2025-01-25 18:41] LABS: Alanine Aminotransferase 27 U/L (12-78); Anion Gap 15.7 mEq/L (5-15); Aspartate Amino Transferase 36 U/L (17-59); Bilirubin,Total 0.8 mg/dl (0.2-1.3); Blood Urea Nitrogen 21 mg/dl (9-20); Carbon Dioxide 28 mmol/L (22.0-30.0); Creatinine Clearance Estimated 82 mL/min (50-200); Creatinine,Serum 1.20 mg/dl (0.66-1.25); Estimated Glomerular Filt Rate 67 ml/min (>60); GFR (African American) 81 ML/MIN (>60)
[2025-01-25 18:42] LABS: Albumin/Globulin Ratio 1.6 (1.1-1.8); Alkaline Phosphatase 51 U/L (38-126); Calcium 9.3 mg/dl (8.4-10.2); Globulin 3.1 g/dL (1.3-3.2); Glucose 90 mg/dl (74-100); Total Protein,Serum 8.1 g/dl (6.3-8.2)
[2025-01-25 18:54] LABS: Troponin I < 0.01 ng/ml (0.00-0.034)
[2025-01-25 19:25] VITALS: BP 114/69; PULSE 54; RESP 17; TEMP 36.8; O2SAT 95
== END 2025-01-25 19:26 | disposition home or self-care (01) ==
PROVIDERS: Nurse Practitioner Acute Care; Emergency Provider Student in an Organized Health Care Education/Training Program; PCP Family Medicine
DX: R07.89 Other chest pain (principal); R06.02 Shortness of breath; J45.909 Unspecified asthma, uncomplicated
CPT/HCPCS: 71045; 80053; 84484; 85025; 93005; 99284; 99285